=== PATIENT | female | born 2000 | race Caucasian/White ===

== ENCOUNTER 2019-06-14 13:01 | Emergency (ER) | payer OTHER ==
[~2019-06-14] VITALS: Ht 162.6 cm; Wt 63.5 kg
--- NOTE | 2019-06-14 13:25 | Emergency Room Report ---
History of Present Illness General Chief Complaint: Upper Respiratory Illness Source: Patient Present Illness HPI 18-year-old female with no significant past medical history here complaining of over 1 month of cough and congestion. Denies any wheezing at this time however reports that her symptoms started with wheezing, sore throat, fever and chills however she now has productive cough with phlegm formation. Denies history of tobacco smoke or drug use. Denies chest pain shortness of breath. Denies fever and chills at this time. Patient reports that 2 weeks ago she was seen by her primary care provider and given Flonase nasal spray with minimal relief. Denies any recent travel. Denies abdominal pain, nausea vomiting or other associated symptoms. Allergies: Coded Allergies: No Known Allergies (Unverified , 06/14/19) Patient History Past Medical History: see triage record Past Surgical History: unable to obtain Pertinent Family History: none Last Menstrual Period: 05/14/19 Now: No Immunizations: UTD Reviewed Nursing Documentation: PMH: Agreed; PSxH: Agreed Nursing Documentation-PMH Past Medical History: No Stated History Review of Systems All Other Systems: negative except mentioned in HPI Physical Exam Vital Signs Date Time Temp Pulse Resp B/P (MAP) Pulse Ox O2 Delivery O2 Flow Rate FiO2 06/14/19 13:02 98.6 88 16 131/99 (110) 97 Room Air Sp02 EP Interpretation: reviewed, normal General Appearance: no apparent distress, alert, GCS 15, non-toxic Head: normocephalic, atraumatic Eyes: bilateral eye normal inspection, bilateral eye PERRL ENT: hearing grossly normal, no angioedema, normal voice, pharyngeal erythema Neck: full range of motion, supple, supple/symm/no masses Respiratory: chest non-tender, lungs clear, normal breath sounds, no rhonchi, no wheezing, speaking full sentences Cardiovascular #1: normal inspection, normal peripheral pulses, regular rate, rhythm, no murmur Gastrointestinal: normal bowel sounds, non tender, soft, non-distended, no guarding, no rebound Rectal: deferred Genitourinary: normal inspection, no CVA tenderness Musculoskeletal: back normal, gait/station normal, normal range of motion, non- tender Neurologic: alert, oriented x3, responsive, motor strength/tone normal, sensory intact, speech normal Psychiatric: judgement/insight normal, memory normal, mood/affect normal, no suicidal/homicidal ideation Skin: no rash Lymphatic: no adenopathy Medical Decision Making PA Attestation All my diagnosis and treatment plans were reviewed ad discussed with my supervising physician Dr. Maguire Diagnostic Impression: Primary Impression: Bronchitis Additional Impression: Discoloration of skin of toe ER Course 18-year-old female with no significant past medical history here complaining of over 1 month of cough and congestion. Denies any wheezing at this time however reports that her symptoms started with wheezing, sore throat, fever and chills however she now has productive cough with phlegm formation. Denies history of tobacco smoke or drug use. Denies chest pain shortness of breath. Denies fever and chills at this time. Patient reports that 2 weeks ago she was seen by her primary care provider and given Flonase nasal spray with minimal relief. Denies any recent travel. Denies abdominal pain, nausea vomiting or other associated symptoms. Ddx considered but are not limited to: bronchitis, PNA, URI viral, bacterial bronchitis Vital signs: are WNL, pt. is afebrile H&PE are most consistent with: Bronchitis most likely bacterial due to unresponsiveness to viral treatment ORDERS: Flonase, Phenergan, Z-Papa ED INTERVENTIONS: None required at this time. DISCHARGE: At this time pt. is stable for d/c to home. Will provide printed patient care instructions, and any necessary prescriptions. Care plan and follow up instructions have been discussed with the patient prior to discharge. Patient also states that his toenail crack is noted on the toenail patient denies any pain or pruritus is not suggesting any toe fungus. It appears as a stinging patient to follow-up with providers also scrubbing the affected area advised Last Vital Signs Date Time Temp Pulse Resp B/P (MAP) Pulse Ox O2 Delivery O2 Flow Rate FiO2 06/14/19 13:02 98.6 88 16 131/99 (110) 97 Room Air Disposition: HOME, SELF-CARE Condition: Stable Scripts Albuterol Sulfate (VENTOLIN HFA) 18 Gm Hfa.aer.ad 2 PUFFS INH EVERY 6 HOURS, #18 GM 0 Refills Prov: Nirav Soto 06/14/19 Promethazine Hcl (PROMETHAZINE HCL*) 6.25 Mg/5 Ml Syrup 5 ML ORAL Q6H, #120 ML 0 Refills Prov: Nirav Soto 06/14/19 Azithromycin* (ZITHROMAX*) 250 Mg Tablet 250 MG ORAL DAILY, #6 TAB 0 Refills Take two tables once daily for 1 day, then one tablet once daily for 4 days. Prov: Nirav Soto 06/14/19 Patient Instructions: Acute Bronchitis, [id number] Nirav Soto Jun 14, 2019 13:25
[2019-06-14] MEDS ORDERED: PROMETHAZI6.25 MG/1 ORAL (13:26)
[2019-06-14] MEDS ORDERED: ZITHROMAX250 MG ORAL (13:26)
[2019-06-14] MEDS ORDERED: VENTOLIN HFA18 GM INH (13:26)
--- NOTE | 2019-06-14 13:30 | NUR ---
ER DISCHARGE NOTE: Patient is cleared to be discharged per ERMD, pt is aox4, on room air, with stable vital signs. pt was given dc and prescription instructions, pt was able to verbalize understanding, pt is able to ambulate with steady gait. pt took all belongings.
[2019-06-14 13:44] VITALS: BP 131/99
[2019-06-14 13:45] VITALS: BP 131/99
== END 2019-06-14 14:20 | disposition home or self-care (01) ==
LOC: EMR 13:15
DX: J40 Bronchitis, not specified as acute or chronic (principal); L98.8 Other specified disorders of the skin and subcutaneous tissue
CPT/HCPCS: 99282